=== PATIENT | female | born 1970 | race Caucasian/White ===

== ENCOUNTER 2018-10-09 18:09 | Observation (INO) ==
--- NOTE | 2018-10-09 18:31 | Emergency Department Note ---
Disposition Clinical Impression: Dental infection, Failure of outpatient treatment Crohns disease Qualifiers: Gastrointestinal tract location: unspecified location Digestive disease complication type: unspecified complication Qualified Code(s): K50.919 - Crohn's disease, unspecified, with unspecified complications Disposition: Admitted As Inpatient Condition: Good General Adult HPI - General Chief complaint: ED Dental/Oral Stated complaint: Fever/Neck swelling Time Seen by Provider: 10/09/18 18:24 Source: patient Nursing Notes Reviewed: Yes Vital Signs Reviewed: Yes - History of Present Illness HPI Narrative: 48 yo female with past medical history of Crohn's disease presents to the emergency department with dental abscess nonresponsive to antibiotics. She has already had a head CT done at an outside facility which demonstrated an abscess and was placed on Keflex. She finished a course of Keflex and still is having jaw pain and was started on clindamycin on October 06. She has been on clindamycin for 4 days without relief of pain. She went to her primary care doctor today who is concern for antibiotic failure due to her Crohn's disease and sent her here to be admitted for IV antibiotics. She denies fevers, abdominal pain, nausea, vomiting. She has had some pain with swallowing. She is still able to tolerate food and liquids. She is not able to get into see a dentist until next . Pain Scale: 10 - Related Data Home Medications Medication Instructions Recorded Confirmed PredniSONE [Ayla] 2 mg PO QAM 05/13/18 05/13/18 Simzia 1 SQ QWEEK 05/13/18 Previous Rx's Medication Instructions Recorded HYDROcodone/Acet 5/325 mg [[place] 1 tab PO Q4H PRN 2 Days #15 tab 05/13/18 5-325 mg] Ondansetron ODT [Zofran ODT] 4 mg SL Q4HR PRN #15 tab.rapdis 05/13/18 Clindamycin [Cleocin] 150 mg PO Q6HR #40 capsule 10/06/18 Allergies Allergy/AdvReac Type Severity Reaction Status Date / Time adalimumab [From Humira] Allergy See Verified 10/09/18 18:14 Comments infliximab [From Remicade] Allergy See Verified 06/24/16 07:12 Comments mesalamine [From Asacol] Allergy Rash Verified 05/13/18 21:14 Penicillins [PCN] Allergy Hives Verified 06/24/16 07:12 All systems ED: reviewed and negative except as stated. Review of Systems: As Per HPI Constitutional: Denies: fever, chills, weakness ENT ED: Reports: throat pain, dental pain Cardiovascular: Denies: chest pain, palpitations, dyspnea on exertion Respiratory: Denies: cough, dyspnea, wheezes Gastrointestinal: Denies: abdominal pain, nausea, vomiting Musculoskeletal: Reports: neck pain. 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 There is pain on percussion of right lower posterior molar. There is no visible drainage on the inside of the right cheek. Breath is not foul-smelling. There is no occlusion of her throat from the swelling. There is no tracheal shift. - General Limitations: no limitations General appearance: alert, in no apparent distress - Head Head exam: atraumatic - Eye Eye exam: Present: normal appearance, PERRL, EOMI - Chest Chest inspection: Present: normal inspection. Absent: tenderness - Respiratory Respiratory exam: Present: normal lung sounds bilaterally. Absent: wheezes, stridor - Cardiovascular Cardiovascular exam: Present: regular rate, normal rhythm - Abdominal Exam Abdominal exam: Present: soft, Non-Tender. Absent: distention, guarding, rebound, rigidity - Neurological Exam Neurological exam: Present: alert, oriented X3 - Psychiatric Psychiatric exam: Present: normal affect - Skin Skin exam: Present: warm, dry, intact Course Vital Signs Temperature 99.2 F 10/09/18 18:13 Pulse Rate 82 10/09/18 18:13 Respiratory Rate 18 10/09/18 18:13 Blood Pressure 151/100 10/09/18 18:13 O2 Sat by Pulse Oximetry 96 10/09/18 18:13 Temperature 99.2 F 10/09/18 18:13 Pulse Rate 82 10/09/18 18:13 Respiratory Rate 18 10/09/18 18:13 Blood Pressure 151/100 10/09/18 18:13 O2 Sat by Pulse Oximetry 96 10/09/18 18:13 Oxygen Delivery Oxygen Delivery Room Air Procedures - Nerve Block Nerve Block 1 Consent Obtained: verbal consent Time Out Performed: No Local Anesthetic: bupivacaine 0.5% Amount of anesthesia used (mL): 7 Side: right Intraoral Nerve Block: inferior alveolar Procedure Successful: Yes Patient Tolerated Procedure: well Complications: none Additional Comments: Procedure done by Dr. Schuler and myself Medical Decision Making - [facility] Narrative Medical decision making narrative: This patient presents with failed outpatient antibiotic therapy for a dental abscess without access to a dentist for tooth extraction and drainage of the abscess. We will admit her for IV antibiotics as her Crohn's disease will not likely allow for her to recover from this with oral antibiotics. We will order Toradol for pain and do a dental block. 2103 - dental block was done with improvement in patient's pain. Spoke with Dr. Reyes the admitting hospitalist. He requests a CT of the patient's face to determine the involvement of this abscess. He is otherwise accepted this patient for admission for IV antibiotics. - Medical Records Medical records reviewed: Yes I reviewed the patient's medical records.
[2018-10-09] MEDS ORDERED: Clindamycin 900 MG/50 ML 900 MG/50 ML IV.SOLN IVPB ONE (19:23)
[2018-10-09] MEDS ORDERED: Ketorolac 15 MG/ML VIAL IVP STA (19:24)
--- NOTE | 2018-10-09 19:27 | Emergency Department Note ---
Disposition Clinical Impression: Dental infection, Failure of outpatient treatment Crohns disease Qualifiers: Gastrointestinal tract location: unspecified location Digestive disease complication type: unspecified complication Qualified Code(s): K50.919 - Crohn's disease, unspecified, with unspecified complications Disposition: Admitted As Inpatient Condition: Fair Forms: ED Satisfaction Letter General Adult HPI - General Chief complaint: ED Dental/Oral Stated complaint: Fever/Neck swelling Time Seen by Provider: 10/09/18 18:24 Source: patient - History of Present Illness Pain Scale: 10 - Related Data Home Medications Medication Instructions Recorded Confirmed PredniSONE [Ayla] 2 mg PO QAM 05/13/18 05/13/18 Simzia 1 SQ QWEEK 05/13/18 Previous Rx's Medication Instructions Recorded HYDROcodone/Acet 5/325 mg [[place] 1 tab PO Q4H PRN 2 Days #15 tab 05/13/18 5-325 mg] Ondansetron ODT [Zofran ODT] 4 mg SL Q4HR PRN #15 tab.rapdis 05/13/18 Clindamycin [Cleocin] 150 mg PO Q6HR #40 capsule 10/06/18 Allergies Allergy/AdvReac Type Severity Reaction Status Date / Time adalimumab [From Humira] Allergy See Verified 10/09/18 18:14 Comments infliximab [From Remicade] Allergy See Verified 06/24/16 07:12 Comments mesalamine [From Asacol] Allergy Rash Verified 05/13/18 21:14 Penicillins [PCN] Allergy Hives Verified 06/24/16 07:12 Constitutional: Denies: fever, chills, weakness ENT ED: Reports: throat pain, dental pain Cardiovascular: Denies: chest pain, palpitations, dyspnea on exertion Respiratory: Denies: cough, dyspnea, wheezes Gastrointestinal: Denies: abdominal pain, nausea, vomiting Musculoskeletal: Reports: neck pain. 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 - Social History Smoking Status: Current every day smoker Smokeless Tobacco Status: No Alcohol use: Reports: none Drug use: Reports: none Physical Exam - General General appearance: alert, in no apparent distress Course Vital Signs Temperature 99.2 F 10/09/18 18:13 Pulse Rate 82 10/09/18 18:13 Respiratory Rate 18 10/09/18 18:13 Blood Pressure 151/100 10/09/18 18:13 O2 Sat by Pulse Oximetry 96 10/09/18 18:13 Temperature 99.2 F 10/09/18 18:13 Pulse Rate 82 10/09/18 18:13 Respiratory Rate 18 10/09/18 18:13 Blood Pressure 151/100 10/09/18 18:13 O2 Sat by Pulse Oximetry 96 10/09/18 18:13 Oxygen Delivery Oxygen Delivery Room Air Attestation Statement - Attestation Attestation: I examined this patient and my medical decision-making was reviewed with the Resident Physician. I agree with the documented findings, disposition and treatment plan as described except to the extent set forth below. Moderate swelling of the right submandibular tissues. No woody edema of the sublingual tissues, exam not consistent with levels. Significant swelling around the infected tooth on the right mandible, but no drainage. No palpable lymph nodes. No muffling of her voice. No trismus. Able to move her neck without difficulty. Subjective fever at home but no fever here. She has Crohn's disease but has not been having diarrhea, still, she says her other drug levels have been running low and there is question as to whether she is observing her and oral antibiotics. We could get her in with the [facility] in [place] tomorrow, but are not limited to fall it is this inflamed and infected. Considering she has failed courses of oral antibiotics over the last week and a half as an outpatient, I think that admission for IV antibiotics is reasonable.
[2018-10-09] MEDS ORDERED: Ketamine *HR* 20 MG in 0.9 % Sodium Chloride 100 ML IVPB ONE (19:52)
[2018-10-09] MEDS ORDERED: Isovue-370 500 ML INFUS..BTL IV ONE (20:57)
[2018-10-09] MEDS ORDERED: *HR* OxyCODONE Immed Rel 5 MG TABLET PO PRN (22:02)
[2018-10-09] MEDS ORDERED: Naloxone 0.4 MG/ML INJ IVP PRN (22:02)
[2018-10-09] MEDS ORDERED: Acetaminophen 325 MG TABLET PO PRN (22:02)
--- NOTE | 2018-10-09 22:27 | Internal Med History&Physical ---
Date of Encounter: 10/09/18 Time of Encounter: 22:24 Internal Medicine - H&P: HPI Chief complaint: right facial pain Admitted From: Home Plans for Post Hospital Care: Home () History of present illness: Peyton Duarte is a 48 year old woman at the history remarkable for Crohns disease on certolizumab and nephrolithiasis s/p left ureteroscopy, laser lithotripsy and stent placement in May 2016 who has been dealing with a dental infection for the past 2 weeks initially diagnosed at another ER on September 27. She was seen in our emergency room 3 days ago where she stated that she had just completed a course of cephalexin but continued to have the right jaw and facial pain. She was then prescribed clindamycin and tramadol pending her dentist appointment on October 18. She comes in again tonight complaining of ongoing swelling and pain. As per ER evaluation, swelling of the right submandibular tissues and around the infected tooth in the right mandible was noted but no drainage, mobility restriction or airway compromise. It was then considered that given her baseline comorbidity with immune modulating medications she may require intravenous antibiotics given failure of oral outpatient therapy. She reports subjective fevers at home but she has remained afebrile here. She received a nerve block in the ER and right now has numbness. Past Med Surg Social Fam HX - Past Medical History Medical history: GERD, kidney stones, other Additional medical history: crohn's disease, diverticulosis Psychiatric history: no psych history - Past Surgical History Surgical History: appendectomy, , cholecystectomy, hysterectomy - Social History Smoking Status: Current every day smoker Packs per day: <1 Smokeless Tobacco Status: No Alcohol use: none Drug use: none Internal Medicine - H&P: Meds HYDROcodone/Acet 5/325 mg [[place] 5-325 mg] 1 tab PO Q4H PRN 2 Days #15 tab 05/13/18 [Rx] Ondansetron ODT [Zofran ODT] 4 mg SL Q4HR PRN #15 tab.rapdis 05/13/18 [Rx] PredniSONE [Ayla] 2 mg PO QAM 05/13/18 [History] Simzia 1 SQ QWEEK 05/13/18 [History] Clindamycin [Cleocin] 150 mg PO Q6HR #40 capsule 10/06/18 [Rx] Allergy/AdvReac Type Severity Reaction Status Date / Time adalimumab [From Humira] Allergy See Verified 10/09/18 18:14 Comments infliximab [From Remicade] Allergy See Verified 06/24/16 07:12 Comments mesalamine [From Asacol] Allergy Rash Verified 05/13/18 21:14 Penicillins [PCN] Allergy Hives Verified 06/24/16 07:12 All Systems PM: A 10-system review of systems was performed and is negative for pertinent findings except as documented above in the HPI. Family history reviewed and found noncontributory. - Constitutional Vitals: Temp Pulse Resp BP Pulse Ox 99 F 74 16 130/86 94 10/09/18 21:55 10/09/18 21:55 10/09/18 21:55 10/09/18 21:55 10/09/18 21:55 General appearance: Present: A&O X 3 Exam: Vitals: Reviewed General: Obese white female lying comfortably in bed in no acute distress. Skin: Warm and supple. HEENT: Moist mucous membranes. No conjunctivae pallor. Right mandibular gingival fullness and tenderness appreciated with no active orifice and drainage. Neck: Right submandibular fullness with tenderness to palpation. Chest: Normal thoracic expansion. Normal breath sounds. Clear to auscultation. Heart: Normal S1 & S2; rhythmic. No rubs or murmurs. Abdomen: Non-distended, soft and non-tender to palpation. No peritoneal reaction. Liver is normal in size. Spleen is not palpable. Extremities: No clubbing, cyanosis or edema. No calf tenderness. Normal distal pulses. Neurological: Awake, alert and oriented to person, place and time. No focal deficits. Psych: Affect appropriate. Internal Med - H&P Results - Impressions ITS Impressions Face CT 10/09/18 20:57 IMPRESSION: Findings of cellulitis overlying the right mandibular body. No evidence of abscess. D/ / Spike Zelaya / Spike Zelaya Interpreting Provider: Spike Zelaya - Assessment and plan (1) Dental infection Current Visit: Yes Status: Acute Assessment and plan: Given her 3 ER visits in 2 weeks and 2 courses of abx therapy, will order a facial CT scan with contrast for better assessment of the structures and degree of affectation. Obtain peripheral blood cultures and routine blood work. Continue IV clindamycin 600mg q8hrs and based on the CT results, consideration should be given for ENT consultation if needed. Currently has no alarming features based on physical exam therefore will await the radiologic result. Pain control as needed. Apply warm compresses. (2) Crohns disease Current Visit: Yes Status: Acute Assessment and plan: In remission. On Simzia monthly. Qualifiers: Gastrointestinal tract location: unspecified location Digestive disease complication type: unspecified complication Qualified Code(s): K50.919 - Crohn's disease, unspecified, with unspecified complications (3) Obesity Current Visit: Yes Status: Acute Assessment and plan: Counseled on diet and exercise. Qualifiers: Obesity type: due to excess calories Obesity classification: adult class 2 (BMI 35 - 39.9) Serious obesity comorbidity presence: unspecified whether serious comorbidity present Body mass index: BMI 36.0-36.9 Qualified Code(s): E66.09 - Other obesity due to excess calories; Z68.36 - Body mass index (BMI) 36.0-36.9, adult (4) DVT prophylaxis Current Visit: Yes Status: Acute Assessment and plan: SubQ heparin. - Time Spent With Patient Total time spent is greater than 50% in coordination of care (as documented) at patient's floor/unit and/or counseling patient: Greater than 35 minutes
[2018-10-10] MEDS: 0.9 % Sodium Chloride 1,000 ML IVC SCH ×2 (00:18→07:54)
[2018-10-10] MEDS: *HR* HYDROcodone/Acet 5/325 mg TABLET PO PRN ×2 (02:44→09:50)
[2018-10-10 06:06] LABS: Basophils % 0.6 %; Eosinophils # 0.1 K/mcL (0.0-0.6); Hematocrit 37.4 % (35.3-44.9); Hemoglobin 12.1 g/dL (11.5-15.4); Immature Granulocytes % 0.3 % (0-4); Lymphocytes # 2.3 K/mcL (0.6-4.6); Lymphocytes % 32.7 %; Mean Corpuscular HGB Conc 32.4 g/dL (31.6-35.5); Mean Corpuscular Hemoglobin 30.5 pg (28.0-33.3); Mean Corpuscular Volume 94.2 fL (83.0-100.0); Monocytes # 0.7 K/mcL (0.0-1.3); Monocytes % 10.6 %; Neutrophils # 3.8 K/mcL (1.6-8.9); Platelet Count 247 K/mcL (140-400); Red Blood Count 3.97 M/mcL (3.82-4.97); Red Cell Distribution Width 11.9 % (11.5-14.5); Segmented Neutrophils % 53.8 %
[2018-10-10 06:11] LABS: Prothrombin Time 11.2 Seconds (9.4-12.1)
[2018-10-10 06:13] LABS: Activated Partial Thrombo Time 21.3 Seconds (26.0-36.0)
[2018-10-10 06:22] LABS: BUN/Creatinine Ratio 14 (6-26); Blood Urea Nitrogen 7 mg/dL (6-20); Calcium 8.9 mg/dL (8.6-10.3); Carbon Dioxide 24 mEq/L (23-29); Chloride 107 mEq/L (98-107); Glucose 91 mg/dL (70-105); Osmolality,Calculated 286 (280-300); Potassium 3.8 mEq/L (3.5-5.1); Sodium 139 mEq/L (136-145); eGFR For Non-African Americans > 60 (> 60)
[2018-10-10 06:25] LABS: Platelet Estimate Normal (Normal)
[2018-10-10] MEDS: Clindamycin 600 MG/50 ML 600 MG/50 ML IV.SOLN IVPB SCH ×3 (06:26→22:09)
[2018-10-10] MEDS: *HR* Heparin 5,000 UNIT/ML VIAL SQ SCH ×2 (06:26→16:27)
[2018-10-10] MEDS ORDERED: Acetaminophen IV 1,000 MG/100 ML INFUS..BTL IVPB ONE (06:32)
[2018-10-10] MEDS: Ketorolac 15 MG/ML VIAL IVP PRN ×2 (16:25→22:11)
--- NOTE | 2018-10-10 18:11 | Internal Med Progress Note ---
Hospitalist Progress Note - Encounter Date of Encounter: 10/10/18 Time of Encounter: 09:00 - Subjective Interval History: Patient was seen and examined earlier this morning at bedside. Currently patient states that she feels much better she does have swelling to the right side of her face denies any difficulty swallowing or eating at this time. Her airway is patent and trachea is midline I did review treatment plan with the patient who verbalized understanding - Exam Vitals: Temp Pulse Resp BP Pulse Ox 98.3 F 66 16 136/60 96 10/10/18 15:38 10/10/18 15:38 10/10/18 15:38 10/10/18 15:38 10/10/18 15:38 Exam: Vitals: Reviewed General: Obese white female lying comfortably in bed in no acute distress. Skin: Warm and supple. HEENT: Moist mucous membranes. No conjunctivae pallor. Right mandibular gingival fullness and tenderness appreciated with no active orifice and drainage. Trachea is midline with no deviation Neck: Right submandibular fullness with tenderness to palpation. Chest: Normal thoracic expansion. Normal breath sounds. Clear to auscultation. Heart: Normal S1 & S2; rhythmic. No rubs or murmurs. Abdomen: Non-distended, soft and non-tender to palpation. No peritoneal reaction. Liver is normal in size. Spleen is not palpable. Extremities: No clubbing, cyanosis or edema. No calf tenderness. Normal distal pulses. Neurological: Awake, alert and oriented to person, place and time. No focal deficits. Psych: Affect appropriate. - Assessment and Plan (1) Dental infection Current Visit: Yes Status: Acute Assessment and Plan: Given her 3 ER visits in 2 weeks and 2 courses of abx therapy, will order a facial CT scan with contrast for better assessment of the structures and degree of affectation. Obtain peripheral blood cultures and routine blood work. Continue IV clindamycin 600mg q8hrs and based on the CT results, consideration should be given for ENT consultation if needed. Currently has no alarming features based on physical exam therefore will await the radiologic result. Pain control as needed. Apply warm compresses. 10/10/2018 Patient has had 2 courses of antibiotic therapy with no improvement we will continue with IV clindamycin at 600 mg every 8 hours-facial CT shows findings of cellulitis overlying right mandibular body and no evidence of abscess Continue warm compresses Toradol as needed as well as oxycodone (2) Crohns disease Current Visit: Yes Status: Acute Assessment and Plan: In remission. On Simzia monthly. 10/10/2018 Stable at this time (3) Obesity Current Visit: Yes Status: Acute Assessment and Plan: Counseled on diet and exercise. (4) DVT prophylaxis Current Visit: Yes Status: Acute Assessment and Plan: SubQ heparin. - Time Spent with Patient Total time spent is greater than 50% in coordination of care (as documented) at patient's floor/unit and/or counseling patient: Internal Medicine: Result - Labs CBC & Chem 7: 10/10/18 05:23 10/10/18 05:23 Labs: Short CBC 10/10/18 Range/Units 05:23 WBC 7.0 (4.3-11.1) K/mcL Hgb 12.1 (11.5-15.4) g/dL Hct 37.4 (35.3-44.9) % Plt Count 247 (140-400) K/mcL Neutrophils # 3.8 (1.6-8.9) K/mcL BMP 10/10/18 05:23 Sodium 139 Potassium 3.8 Chloride 107 Carbon Dioxide 24 BUN 7 Creatinine 0.49 L Glucose 91 Calcium 8.9 - ABG Interpretation ABG results: PT/INR, D-dimer PT 11.2 Seconds (9.4-12.1) 10/10/18 05:23 - Impressions Impressions Face CT 10/09/18 20:57 IMPRESSION: Findings of cellulitis overlying the right mandibular body. No evidence of abscess. D/ / Spike Zelaya / Spike Zelaya Interpreting Provider: Spike Zelaya Consult Discharge Plan - Plan Referrals: Ruben Stewart DO [Primary Care Provider] - (2) Crohns disease Qualifiers: Gastrointestinal tract location: unspecified location Digestive disease complication type: unspecified complication Qualified Code(s): K50.919 - Crohn's disease, unspecified, with unspecified complications (3) Obesity Qualifiers: Obesity type: due to excess calories Obesity classification: adult class 2 (BMI 35 - 39.9) Serious obesity comorbidity presence: unspecified whether serious comorbidity present Body mass index: BMI 36.0-36.9 Qualified Code(s): E66.09 - Other obesity due to excess calories; Z68.36 - Body mass index (BMI) 36.0-36.9, adult
[2018-10-11 05:55] LABS: Basophils % 0.4 %; Eosinophils # 0.1 K/mcL (0.0-0.6); Eosinophils % 2.4 %; Immature Granulocytes % 0.2 % (0-4); Lymphocytes # 2.2 K/mcL (0.6-4.6); Lymphocytes % 42.9 %; Mean Corpuscular HGB Conc 33.3 g/dL (31.6-35.5); Mean Corpuscular Hemoglobin 30.8 pg (28.0-33.3); Mean Corpuscular Volume 92.3 fL (83.0-100.0); Mean Platelet Volume 9.6 fL (9.4-12.4); Monocytes # 0.5 K/mcL (0.0-1.3); Monocytes % 9.1 %; Neutrophils # 2.3 K/mcL (1.6-8.9); Platelet Count 258 K/mcL (140-400); Red Cell Distribution Width 11.9 % (11.5-14.5)
[2018-10-11] MEDS: *HR* Heparin 5,000 UNIT/ML VIAL SQ SCH (06:08)
[2018-10-11] MEDS: Clindamycin 600 MG/50 ML 600 MG/50 ML IV.SOLN IVPB SCH (06:08)
[2018-10-11 06:12] LABS: BUN/Creatinine Ratio 10 (6-26); Blood Urea Nitrogen 5 mg/dL (6-20); Calcium 9.2 mg/dL (8.6-10.3); Carbon Dioxide 24 mEq/L (23-29); Chloride 106 mEq/L (98-107); Glucose 110 mg/dL (70-105); Osmolality,Calculated 282 (280-300); Sodium 137 mEq/L (136-145); eGFR For Non-African Americans > 60 (> 60)
[2018-10-11] MEDS: Ketorolac 15 MG/ML VIAL IVP PRN (09:35)
[2018-10-11 11:55] VITALS: BP 144/94
--- NOTE | 2018-10-11 12:05 | Discharge Summary ---
Orders not resulted at time of discharge: Pending orders 10/10/18 05:20 Culture,Blood [BC] Routine Date of Encounter: 10/11/18 Time of Encounter: 12:05 - Discharge Diagnosis (1) Dental infection Priority: Primary Status: Acute (2) Crohns disease Priority: Secondary Status: Acute Qualifiers: Gastrointestinal tract location: unspecified location Digestive disease complication type: unspecified complication Qualified Code(s): K50.919 - Crohn's disease, unspecified, with unspecified complications (3) Obesity Priority: Secondary Status: Acute Qualifiers: Obesity type: due to excess calories Obesity classification: adult class 2 (BMI 35 - 39.9) Serious obesity comorbidity presence: unspecified whether serious comorbidity present Body mass index: BMI 36.0-36.9 Qualified Code(s): E66.09 - Other obesity due to excess calories; Z68.36 - Body mass index (BMI) 36.0-36.9, adult Hospital course: Ms. Duarte is a 48 year old female past medical history of GERD kidney stones chronic disease diverticulosis presented to [facility] ED with right-sided jaw and facial pain. [place] patient has been experiencing dental infection for the past 2 weeks initially diagnosed at another ER on September 27. She had completed a course of Floxin without improvement and then was placed 3 days ago on clindamycin she does have a dentist appointment on October 18. She did have subjective fevers at home lab work was unremarkable with no white count this time no fever during this admission. CT of face was obtained which did show findings of cellulitis right mandibular body no evidence of abscess. She did receive IV clindamycin for 2 days which did improve facial swelling. Patient has been able tolerate oral intake full liquid diet no difficulty swallowing trachea is midline. She is currently hemodynamically stable at this time. Advised patient to follow up with the dentist right molar appears to be decayed will require extraction. Patient does have an appointment for Monday. Also advised patient follow with PCP. Currently she is ready for discharge. Discharge discussed with: patient - Time Spent with Patient Total time spent providing and/or coordinating discharge services: - Discharge Medications Prescriptions: Clindamycin HCl [Cleocin HCl] 300 mg PO TID #21 cap Lactobacillus [Culturelle] 1 each PO DAILY #30 cap.sprink Home Medications: Certolizumab Pegol [Cimzia] 400 mg SQ QMONTH 10/10/18 [History] Cholecalciferol (Vitamin D3) [Vitamin D3] 10,000 unit PO MOSA 10/10/18 [History] Clindamycin HCl [Cleocin HCl] 300 mg PO TID #21 cap 10/11/18 [Rx] Lactobacillus [Culturelle] 1 each PO DAILY #30 cap.sprink 10/11/18 [Rx] Allergies/Adverse Reactions: Allergy/AdvReac Type Severity Reaction Status Date / Time adalimumab [From Humira] Allergy See Verified 10/09/18 18:14 Comments infliximab [From Remicade] Allergy See Verified 06/24/16 07:12 Comments mesalamine [From Asacol] Allergy Rash Verified 05/13/18 21:14 Penicillins [PCN] Allergy Hives Verified 06/24/16 07:12 Date of admission: 10/09/18 20:59 Primary care physician: Ruben Stewart, DO - Constitutional Vitals: Temp Pulse Resp BP Pulse Ox 98.1 F 63 17 144/94 96 10/11/18 11:52 10/11/18 11:52 10/11/18 11:52 10/11/18 11:52 10/11/18 11:52 General appearance: Present: A&O X 3 Exam: Vitals: Reviewed General: Obese white female lying comfortably in bed in no acute distress. Skin: Warm and supple. HEENT: Moist mucous membranes. No conjunctivae pallor. Right mandibular gingival fullness and tenderness appreciated with no active orifice and drainage. Trachea is midline with no deviation Neck: Right submandibular fullness with tenderness to palpation. Chest: Normal thoracic expansion. Normal breath sounds. Clear to auscultation. Heart: Normal S1 & S2; rhythmic. No rubs or murmurs. Abdomen: Non-distended, soft and non-tender to palpation. No peritoneal reaction. Liver is normal in size. Spleen is not palpable. Extremities: No clubbing, cyanosis or edema. No calf tenderness. Normal distal pulses. Neurological: Awake, alert and oriented to person, place and time. No focal deficits. Psych: Affect appropriate. - Patient Status Disposition: Home, Self-Care Condition: Good Functional capacity at discharge: independent ambulation Overall status at discharge: patient is back to baseline - Discharge Instructions Instructions: Clindamycin (By mouth), Probiotic (By mouth) Follow Up With: Ruben Stewart DO [Primary Care Provider] - 10/17/18 11:00 am - Diet and Activity Activity: increase activity as tolerated Diet: advance to your usual diet
== END 2018-10-11 15:07 | disposition home or self-care (01) ==
LOC: EMEROOARM 18:09 → 3BNU 18:09
PROVIDERS: ADMIT Internal Medicine; ATTEND Internal Medicine